=== PATIENT | female | born 1955 | race Asian ===

== ENCOUNTER → 2017-03-19 | Day surgery (SDC) | payer BC, OTHER ==
--- NOTE | 2017-03-19 16:06 | OP ---
DATE OF OPERATION: 03/19/2017 PREOPERATIVE DIAGNOSIS: Abnormal right mammography. POSTOPERATIVE DIAGNOSIS: Abnormal right mammography. PROCEDURE: Right stereotactic needle biopsy with clips. SURGEON: Ritika Champion MD ANESTHESIA: Local. COMPLICATION: None. DISPOSITION: Stable. INDICATION FOR PROCEDURE: The patient presented with a screening mammography that noted right subareolar calcifications, for which a biopsy was recommended by the radiologist. These were right next to a core set of calcifications. The procedure was discussed with her, including the need for a clip. PROCEDURE IN DETAIL: Patient was brought to [facility], laid prone on the OR table. Using the cranial approach, the calcifications in the right slightly inner breast were identified. A stereo pair was obtained. A target was chosen. There was a positive stroke margin. Using Betadine and 1% lidocaine, a 10-gauge Suros device was used to take several cores from this area. Cores showed calcification within them. These were handled in the usual calcification protocol. As these were directly adjacent to the cores calcifications which were still there, I did not put a clip in. Hemostasis assured with direct pressure. Incisions were closed with Steri-Strips. She tolerated the procedure well and [facility] good [facility]. RITIKA CHAMPION M.D. [id number]
--- NOTE | 2017-03-21 09:47 | PATH ---
Surgical Pathology Report Patient Name: MICHAELA GASPAR [facility]. Rec. #: [id number] /Age/Gender: 1955 (Age: 62) / F Account: [id number] Location: [facility] Taken: 03/19/2017 Received: 03/19/2017 Reported: 03/21/2017 Physicians: Ritika Cheng M.D. Specimen(s) Received A: RIGHT BREAST BX WITH CALCIFICATIONS B: RIGHT BREAST BX WITHOUT CALCIFICATIONS Clinical History Right breast calcifications Final Diagnosis A. BREAST, RIGHT, WITH CALCIFICATIONS, STEREOTACTIC CORE BIOPSY: HYALINIZED FIBROADENOMA WITH ASSOCIATED MICROCALCIFICATIONS. B. BREAST, RIGHT, WITHOUT CALCIFICATIONS, STEREOTACTIC CORE BIOPSY: HYALINIZED FIBROADENOMA. Electronically Signed Tanisha Decker M.D. Gross Description A. Received in formalin, labeled "right breast with calcifications," are 4 callejas-yellow, cylindrical portions of fibroadipose tissue ranging from 1.5-1.8 cm. in length and averaging 0.3 cm. in diameter. The specimen is submitted in toto in one cassette. B. Received in formalin, labeled "right breast without calcifications," are 3 callejas-yellow, cylindrical portions of fibroadipose tissue ranging from 0.8-1.0 cm. in length and averaging 0.3 cm. in diameter. The specimen is submitted in toto in one cassette. Time to formalin fixation: 4 minutes Total formalin fixation time: Approximately 31 hours. 03/20/201703/20/2017
== END | disposition home or self-care (01) ==
LOC: FMAMMOTONE 09:26
PROVIDERS: ATTEND Surgery
PROC: 0HBT3ZX Excision of Right Breast, Percutaneous Approach, Diagnostic (ICD-10-PCS; principal; 2017-03-19)
DX: D24.1 Benign neoplasm of right breast (principal); R92.8 Other abnormal and inconclusive findings on diagnostic imaging of breast
CPT/HCPCS: 19081; 87899; 88305-TC; A4648